=== PATIENT | female | born 1960 | race African-American/Black ===

== ENCOUNTER 2019-02-21 22:59 | Emergency (ER) | payer MEDICARE, MEDICAID | END 2019-02-22 00:55 | disposition home or self-care (01) | LOC: ERS 22:59 | DX: R51 Headache (principal); F41.9 Anxiety disorder, unspecified; F32.9 Major depressive disorder, single episode, unspecified; F17.210 Nicotine dependence, cigarettes, uncomplicated | CPT/HCPCS: 99283 ==

== ENCOUNTER 2020-09-11 19:35 | Emergency (ER) | payer MEDICARE, MEDICAID ==
[2020-09-12 01:57] LABS: SARS-CoV-2 MS2 Positive; SARS-CoV-2 N Gene Positive; SARS-CoV-2 S Gene Positive; SARS-CoV-2 by NAA DETECTED (NotDetected); SARS-CoV-2 orf1ab Positive
== END 2020-09-11 21:02 | disposition home or self-care (01) ==
LOC: ERS 19:35
DX: U07.1 COVID-19 (principal); F17.210 Nicotine dependence, cigarettes, uncomplicated
CPT/HCPCS: 99283; U0003; 87635